=== PATIENT | male | born 1970 | race Caucasian/White ===

== ENCOUNTER 2023-06-22 07:33 | Emergency (ER) | payer SELFPAY ==
[~2023-06-22] VITALS: Ht 182.9 cm; Wt 101.0 kg
[2023-06-22 07:46] VITALS: TEMP 98; O2SAT 97
[2023-06-22 08:00] VITALS: BP 146/100; PULSE 76; RESP 19
[2023-06-22] MEDS ORDERED: IBUPROFEN 400MG TABLET PO ONE (08:00)
[2023-06-22] MEDS ORDERED: IBUP-2028 PO (08:32)
== END 2023-06-22 08:41 | disposition home or self-care (01) ==
LOC: ER 07:33
DX: S63.602A Unspecified sprain of left thumb, initial encounter (principal); W22.8XXA Striking against or struck by other objects, initial encounter; Y93.89 Activity, other specified; Y92.89 Other specified places as the place of occurrence of the external cause; Y99.8 Other external cause status
CPT/HCPCS: 73120; 99283